=== PATIENT | male | born 1980 | race Caucasian/White ===

== ENCOUNTER 2021-03-21 07:07 | Emergency (ER) | payer OTHER ==
--- NOTE | 2021-03-21 07:15 | NUR ---
CALLED PATIENT TO BE TRIAGED 3X, NO ANSWER. WILL FOLLOW UP
--- NOTE | 2021-03-21 07:39 | NUR ---
CALLED TO TRIAGE, NO ANSWER
== END 2021-03-21 07:40 | disposition left against medical advice (07) ==
LOC: ER 07:09
DX: Z53.21 Procedure and treatment not carried out due to patient leaving prior to being seen by health care provider (principal)